=== PATIENT | female | born 1965 | race Caucasian/White ===

== ENCOUNTER 2018-04-12 08:03 | Outpatient (CLI) | payer BC ==
[2018-04-12 09:09] LABS: PROTHROMBIN TIME 10.4 SECONDS (9.0-12.0)
[2018-04-12 09:18] LABS: CLARITY,URINE SLIGHTLY CLOUDY (Clear); COLOR,URINE YELLOW (Yellow); GLUCOSE, URINE NEGATIVE (Neg); KETONES,URINE NEGATIVE (Neg); LEUKOCYTE ESTERASE ,URINE NEGATIVE (Neg); NITRITES, URINE NEGATIVE (Neg); OCCULT BLOOD,URINE MODERATE (Neg); PROTEIN,URINE NEGATIVE (Neg); UA COLLECTION TYPE CLN CATCH MIDSTREAM; UROBILINOGEN,URINE 0.2 E.U/dL (0.2-1.0)
[2018-04-12 09:25] LABS: BASOPHILS % (AUTO) 0.4 % (0-1); EOSINOPHILS % (AUTO) 0.8 % (0-6); HEMATOCRIT 42.6 % (35.0-45.0); HEMOGLOBIN 14.5 g/dl (12.0-16.0); LYMPHOCYTES # (AUTO) 1.8 X10'3 (1.1-4.8); LYMPHOCYTES % (AUTO) 35.5 % (21-51); MEAN CORPUSCULAR HEMOGLOBIN 30.8 PG (27.0-31.0); MEAN CORPUSCULAR VOLUME 90.5 FL (78-98); MEAN PLATELET VOLUME 9.3 FL (7.4-10.4); MONOCYTES # (AUTO) 0.5 X10'3 (0-0.9); MONOCYTES % (AUTO) 8.9 % (2-12); NEUTROPHILS # (AUTO) 2.8 X10'3 (1.8-7.7); NEUTROPHILS % (AUTO) 54.4 % (42-75); PLATELET COUNT 228 X10'3 (140-440); RED BLOOD COUNT 4.71 X10'6 (4.20-5.60); RED CELL DISTRIBUTION WIDTH 14.1 % (11.5-14.5); WHITE BLOOD COUNT 5.2 X10'3 (4.5-11.0)
[2018-04-12 09:56] LABS: ALBUMIN 3.9 G/DL (3.4-5.0); ANION GAP 3 (8-16); BLOOD UREA NITROGEN 17 MG/DL (7-18); BUN/CREATININE RATIO 22.4 (6.6-38.0); CALCIUM 9.2 MG/DL (8.5-10.1); CHLORIDE 102 MMOL/L (99-107); CREATININE 0.76 MG/DL (0.40-0.90); GLUCOSE 92 MG/DL (70-104); SODIUM 139 MMOL/L (135-145); TOTAL CARBON DIOXIDE 34.3 MMOL/L (24-32); eGFR 80 ML/MIN
[2018-04-12 10:04] LABS: MUCUS STRANDS FEW /LPF (Neg); SQUAMOUS EPITHELIAL CELL,UR MANY /LPF (FEW); WBC,URINE NONE SEEN /HPF (0-4)
[2018-04-12 10:05] LABS: BACTERIA,URINE 1+ /HPF (Neg)
== END 2018-04-12 23:59 | disposition home or self-care (01) ==
LOC: LAB 08:03
PROVIDERS: ATTEND Specialist
DX: Z01.818 Encounter for other preprocedural examination (principal); Z51.81 Encounter for therapeutic drug level monitoring; N39.0 Urinary tract infection, site not specified
CPT/HCPCS: 36415; 80048; 81001; 85025; 85610; 87070

== ENCOUNTER 2018-04-23 05:30 | Inpatient (IN) | payer BC ==
[~2018-04-23] VITALS: Ht 157.5 cm; Wt 61.7 kg
[2018-04-23] VITALS (21 sets, daily range): BP systolic 80–120; BP diastolic 40–77
[~2018-04-23 05:30] MED LIST: BIFI4CAP PO; CALC-1051 PO; CHOL400T14 PO; DOCU-28 PO; MAGN500C16 PO; TRAM50TA2 PO; acetaminophen 325mg tablet PO ONE; cefazolin/dext.iso 2gm/100 ML IV ONE; famotidine 20mg tablet PO ONE; gabapentin 300mg capsule PO ONE; oxyCODONE SR 10mg (sust. release) tab -2 tabs (20mg) PO ONE; ringers solution, lacted 1,000 ML IV SCH; tranexamic acid inj. 1,500 MG in normal saline 100ml IV soln 85 ML IV ONE
[2018-04-23] MEDS ORDERED: ROPIVAcaine 0.5% (5mg/ml) 30ml vial ONE (06:25)
[2018-04-23] MEDS ORDERED: bacitracin inj 150,000 UNIT in sodium chloride irrig. sol 3,000 ML IR ONE (07:00)
[2018-04-23] MEDS ORDERED: BUPIVAcaine/PF 7.5mg/ml (0.75%) 10ml vial ONE (07:12)
[2018-04-23] MEDS ORDERED: fentaNYL/PF 50MCG/1 ML 2ML syringe ONE (07:15)
[2018-04-23] MEDS ORDERED: morphine /PF 1mg/ml 10ml inj. ONE (07:15)
[2018-04-23] MEDS ORDERED: MIDAZolam 5mg/5ml vial ONE (07:16)
[2018-04-23] MEDS ORDERED: diphenhydrAMINE 50 mg/ml inj ONE (07:41)
[2018-04-23] MEDS ORDERED: ePHEDrine 50MG/ML INJ. ONE (07:41)
[2018-04-23] MEDS ORDERED: propofol inj 20 ML IV ONE (07:43)
[2018-04-23] MEDS ORDERED: LIDOcaine 1%/PF 5ML 10 MG/ML VIAL ONE (07:43)
[2018-04-23] MEDS ORDERED: phenylephrine 10mg/ml inj. ONE (08:02)
[2018-04-23] MEDS ORDERED: ceFAZolin 1000mg inj ONE (08:41)
[2018-04-23] MEDS ORDERED: ringers solution, lacted 1,000 ML IV SCH ×2 (08:49)
[2018-04-23] MEDS ORDERED: naloxone 2mg/2ml inj 1.2 MG in normal saline 500ml IV soln 500 ML IV PRN (08:49)
[2018-04-23] MEDS ORDERED: ondansetron/PF 4mg/2ml inj IV PRN ×4 (08:50→09:25)
[2018-04-23] MEDS ORDERED: diphenhydrAMINE 50 mg/ml inj IV PRN (08:50)
[2018-04-23] MEDS ORDERED: morphine 4 MG/ML inj SYRINge IV PRN ×4 (08:50)
[2018-04-23] MEDS ORDERED: proCHLORperazine 10 MG/2 ml inj IV PRN ×2 (08:50)
[2018-04-23] MEDS ORDERED: meperidine/PF 25mg/ml syringe IV PRN ×6 (08:50)
[2018-04-23] MEDS ORDERED: oxyCODONE/APAP 10/325mg tablet PO PRN (09:25)
[2018-04-23] MEDS ORDERED: bisacodyl 10mg suppository rectal RC PRN (09:25)
[2018-04-23] MEDS ORDERED: diphenhydrAMINE 25mg capsule PO PRN ×2 (09:25)
[2018-04-23] MEDS ORDERED: magnesium hydroxide 30ml (MOM) UD suspension PO PRN (09:25)
[2018-04-23] MEDS ORDERED: acetaminophen 325mg tablet PO PRN (09:25)
[2018-04-23] MEDS: oxyCODONE/APAP 10/325mg tablet PO PRN ×2 (14:33→20:02)
[2018-04-23] MEDS: potassium cl 20mEq in 1/2 NS 1,000 ML IV SCH ×2 (15:37→17:21)
[2018-04-23] MEDS: ceFAZolin 1GM/D5W- ADD-VANTAGE 50 ML IV SCH (15:37)
[2018-04-23] MEDS: ascorbic acid 500mg tablet PO SCH (19:59)
[2018-04-23] MEDS: docusate sod 100mg capsule PO SCH (20:06)
[2018-04-23] MEDS: sennosides 8.6mg tablet PO SCH (20:06)
[2018-04-24] MEDS: ceFAZolin 1GM/D5W- ADD-VANTAGE 50 ML IV SCH (00:23)
[2018-04-24] MEDS: potassium cl 20mEq in 1/2 NS 1,000 ML IV SCH ×3 (00:24→17:21)
[2018-04-24] MEDS: oxyCODONE/APAP 10/325mg tablet PO PRN ×5 (00:26→19:15)
[2018-04-24 02:00] VITALS: BP 107/59
[2018-04-24] MEDS: HYDROmorphone 1 mg/ml syringe IV PRN ×2 (03:46→08:24)
[2018-04-24 05:00] VITALS: BP 121/61
[2018-04-24 06:32] LABS: BASOPHILS % (AUTO) 0.2 % (0-1); EOSINOPHILS # (AUTO) 0.1 X10'3 (0-0.9); EOSINOPHILS % (AUTO) 1.6 % (0-6); HEMATOCRIT 33.1 % (35.0-45.0); HEMOGLOBIN 11.2 g/dl (12.0-16.0); LYMPHOCYTES # (AUTO) 1.3 X10'3 (1.1-4.8); LYMPHOCYTES % (AUTO) 18.3 % (21-51); MEAN CORPUSCULAR HEMOGLOBIN 30.8 PG (27.0-31.0); MEAN CORPUSCULAR HGB CONC 33.8 % (33.0-36.5); MEAN CORPUSCULAR VOLUME 91.1 FL (78-98); MONOCYTES # (AUTO) 0.6 X10'3 (0-0.9); MONOCYTES % (AUTO) 8.9 % (2-12); NEUTROPHILS # (AUTO) 5.1 X10'3 (1.8-7.7); PLATELET COUNT 160 X10'3 (140-440); RED BLOOD COUNT 3.64 X10'6 (4.20-5.60); RED CELL DISTRIBUTION WIDTH 14.1 % (11.5-14.5); WHITE BLOOD COUNT 7.2 X10'3 (4.5-11.0)
[2018-04-24 06:38] LABS: INR 1.2 INR; PROTHROMBIN TIME 12.1 SECONDS (9.0-12.0)
[2018-04-24 06:47] LABS: ANION GAP 6 (8-16); CHLORIDE 105 MMOL/L (99-107); POTASSIUM 4.1 MMOL/L (3.5-5.1); SODIUM 141 MMOL/L (135-145)
[2018-04-24] MEDS: loratadine 10mg tablet PO SCH (07:05)
[2018-04-24] MEDS: gabapentin 300mg capsule PO SCH (07:06)
[2018-04-24] MEDS: multivitamins, therapeutics tablet PO SCH (07:06)
[2018-04-24] MEDS: docusate sod 100mg capsule PO SCH ×2 (07:06→20:06)
[2018-04-24] MEDS: ascorbic acid 500mg tablet PO SCH ×2 (07:06→20:06)
[2018-04-24] MEDS ORDERED: warfarin 7.5mg tablet PO ONE (10:00)
[2018-04-24 11:20] VITALS: BP 123/71
[2018-04-24] MEDS: lactose-reduced food (Ensure High Protein) 237ml bottle PO SCH ×2 (13:00→18:00)
[2018-04-24 18:00] VITALS: BP 117/73
[2018-04-24] MEDS: sennosides 8.6mg tablet PO SCH (20:06)
[2018-04-24] MEDS: celeCOXIB 100mg capsule PO SCH (20:06)
[2018-04-24 22:00] VITALS: BP 129/75
[2018-04-25] MEDS: oxyCODONE/APAP 10/325mg tablet PO PRN ×3 (00:57→09:36)
[2018-04-25] MEDS: potassium cl 20mEq in 1/2 NS 1,000 ML IV SCH (01:21)
[2018-04-25 05:30] LABS: BASOPHILS % (AUTO) 0.2 % (0-1); EOSINOPHILS # (AUTO) 0.2 X10'3 (0-0.9); HEMATOCRIT 32.1 % (35.0-45.0); HEMOGLOBIN 10.8 g/dl (12.0-16.0); LYMPHOCYTES # (AUTO) 1.6 X10'3 (1.1-4.8); LYMPHOCYTES % (AUTO) 21.8 % (21-51); MEAN CORPUSCULAR HEMOGLOBIN 30.5 PG (27.0-31.0); MEAN CORPUSCULAR HGB CONC 33.6 % (33.0-36.5); MEAN CORPUSCULAR VOLUME 90.8 FL (78-98); MEAN PLATELET VOLUME 9.1 FL (7.4-10.4); MONOCYTES # (AUTO) 0.8 X10'3 (0-0.9); MONOCYTES % (AUTO) 11.2 % (2-12); NEUTROPHILS # (AUTO) 4.8 X10'3 (1.8-7.7); NEUTROPHILS % (AUTO) 64.8 % (42-75); PLATELET COUNT 158 X10'3 (140-440); RED BLOOD COUNT 3.53 X10'6 (4.20-5.60); RED CELL DISTRIBUTION WIDTH 14.3 % (11.5-14.5); WHITE BLOOD COUNT 7.4 X10'3 (4.5-11.0)
[2018-04-25 05:41] LABS: INR 1.4 INR; PROTHROMBIN TIME 14.6 SECONDS (9.0-12.0)
[2018-04-25 06:00] VITALS: BP 100/68
[2018-04-25] MEDS ORDERED: ASPI-1264 PO (06:02)
[2018-04-25] MEDS: celeCOXIB 100mg capsule PO SCH (07:30)
[2018-04-25] MEDS: loratadine 10mg tablet PO SCH (07:30)
[2018-04-25] MEDS: multivitamins, therapeutics tablet PO SCH (07:30)
[2018-04-25] MEDS: ascorbic acid 500mg tablet PO SCH (07:30)
[2018-04-25] MEDS: docusate sod 100mg capsule PO SCH (07:30)
[2018-04-25] MEDS: gabapentin 300mg capsule PO SCH (07:30)
[2018-04-25] MEDS: lactose-reduced food (Ensure High Protein) 237ml bottle PO SCH (08:05)
[2018-04-25] MEDS ORDERED: acetaminophen 325mg tablet PO PRN (09:25)
[2018-04-25] MEDS ORDERED: warfarin 5mg tablet PO ONE (10:00)
== END 2018-04-25 10:10 | disposition home health service (06) | DRG 470 ==
LOC: PAS IN 05:30 → EDSTATUS 07:30 → ORTHO 4S 10:50
PROVIDERS: ADMIT Specialist; ATTEND Specialist
PROC: 0SRB02Z Replacement of Left Hip Joint with Metal on Polyethylene Synthetic Substitute, Open Approach (ICD-10-PCS; principal; 2018-04-23 07:21)
DX: M16.12 Unilateral primary osteoarthritis, left hip (principal); D62 Acute posthemorrhagic anemia; Z96.641 Presence of right artificial hip joint; R09.81 Nasal congestion; G89.29 Other chronic pain; M54.9 Dorsalgia, unspecified; Q65.89 Other specified congenital deformities of hip; Z98.51 Tubal ligation status; Z79.899 Other long term (current) drug therapy
CPT/HCPCS: 36415; 73502; 80051; 85025; 85610; 86885; 86900; 86901; 97116; 97162; 97530; A6253; A6449; A6455; A7000; C1758; C1776; J0690; J1170; J1200; J2001; J2250; J2274; J2370; J2704; J2795; J3010; J3490; J7030; J7120

== ENCOUNTER 2024-10-17 04:41 | Emergency (ER) | payer BC ==
[~2024-10-17] VITALS: Ht 154.9 cm; Wt 65.5 kg
[~2024-10-17 04:41] MED LIST changes: -BIFI4CAP PO; +BIFI4CAP2 PO; -MAGN500C16 PO; +MAGN500C4 PO; -acetaminophen 325mg tablet PO ONE; -cefazolin/dext.iso 2gm/100 ML IV ONE; -famotidine 20mg tablet PO ONE; -gabapentin 300mg capsule PO ONE; -oxyCODONE SR 10mg (sust. release) tab -2 tabs (20mg) PO ONE; -ringers solution, lacted 1,000 ML IV SCH; -tranexamic acid inj. 1,500 MG in normal saline 100ml IV soln 85 ML IV ONE
[2024-10-17 04:48] VITALS: TEMP 98.3
[2024-10-17 05:32] VITALS: BP 134/86; PULSE 85; RESP 16; O2SAT 100
== END 2024-10-17 07:02 | disposition left against medical advice (07) ==
LOC: ER 04:41
DX: R06.02 Shortness of breath (principal); Z91.010 Allergy to peanuts; Z88.8 Allergy status to other drugs, medicaments and biological substances; Z53.21 Procedure and treatment not carried out due to patient leaving prior to being seen by health care provider